=== PATIENT | female | born 2000 | race Caucasian/White ===

== ENCOUNTER 2025-02-08 13:51 | Outpatient (CLI) | payer BC, SELFPAY ==
--- NOTE | 2025-02-08 14:00 | CRLHL7_ITS ---
For Patients: As a result of the Cures Act, medical imaging exams and procedure reports are released immediately into your electronic medical record. You may view this report before your referring provider. If you have questions, please contact your health care provider. LMP: 12/02/2024. JIMI by LMP: 09/08/2025. GA: 9w, 5d. TECHNIQUE: Transvaginal obstetric imaging was performed. INDICATION: Dating and viability. BABY A (right): CRL: 0.33 cm 6w 0d. JIMI 10/04/2025. FHR: Cine clip. GESTATIONAL SAC: 1.2 cm, appears within normal limits. YOLK SAC: 2.8 mm, appears within normal limits. BABY B (left): CRL: 0.33 CM, 6w 0 d. JIMI 10/04/2025. FHR: Cine clip. GESTATIONAL SAC: 1.2 CM, appears within normal limits. YOLK SAC: 2.8 mm, appears within normal limits. RIGHT OVARY: 4.2 x 2.0 x 2.6 cm, CL. LEFT OVARY: 3.6 x 1.9 x 1.9 cm, CL. IMPRESSION: 1. Diamniotic/dichorionic twin gestation is present. 2. Twin A measures 6 weeks 0 days with a sonographic due date 10/04/2025. 3. Twin B measures 6 weeks 0 days with a sonographic due date 10/04/2025. 4. Right ovarian cysts are present which measure 1.5 x 1.5 x 1.6 cm and 1.8 x 1.5 x 1.7 cm. Left ovarian cyst measures 1.8 x 1.4 x 1.5 cm. 5. On the cine clips it does appear that heart tones are present, although because of the early gestation it is difficult to accurately document heart tones with B-mode imaging. Follow-up in 1-2 weeks recommended to document heart rate regarding both poles. Luther Forrester M.D. Diagnostic Radiologist [email or web address] bM/Dictated by: Luther Forrester MD @ 02/08/2025 4:14:00 PM (Electronically Signed)
== END 2025-02-08 13:52 | disposition home or self-care (01) ==
LOC: US 13:52
PROVIDERS: PCP Advanced Practice Midwife; Visit Provider Advanced Practice Midwife
DX: Z34.91 Encounter for supervision of normal pregnancy, unspecified, first trimester (principal); O30.001 Twin pregnancy, unspecified number of placenta and unspecified number of amniotic sacs, first trimester; O34.81 Maternal care for other abnormalities of pelvic organs, first trimester; N83.201 Unspecified ovarian cyst, right side; Z3A.09 9 weeks gestation of pregnancy
CPT/HCPCS: 76817

== ENCOUNTER 2025-02-19 12:00 | Outpatient (CLI) | payer BC, SELFPAY ==
--- NOTE | 2025-02-19 12:15 | CRLHL7_ITS ---
For Patients: As a result of the Cures Act, medical imaging exams and procedure reports are released immediately into your electronic medical record. You may view this report before your referring provider. If you have questions, please contact your health care provider. OB ULTRASOUND INDICATION: Follow-up viability. Di-Di twins. TECHNIQUE: Real time grayscale imaging of the fetus was performed. Transvaginal. JIMI by US: 10/04/2025. GA: 7 w, 4 d. Previous US: Yes 02/08/2025. JIMI by US: 10/04/2025. GA: 6 w, 0 d. BABY A: CRL: 1.3 cm. 7 w 3 d. JIMI: 10/05/2025. FHR: 150 BPM. Gestational sac: 2.3 cm. Appears within normal limits. Yolk sac: 3.0 mm. Appears within normal limits. BABY B: CRL: 1.2 cm. 7 w 3 d. JIMI: 10/05/2025. FHR: 149 BPM. Gestational sac: 2.2 cm. Appears within normal limits. Yolk sac: 2.8 mm. Appears within normal limits. Right ovary: 3.8 x 1.9 x 2.1 cm. CL. Left ovary: 2.8 x 1.9 x 2.0 cm. CL. IMPRESSION: 1. Living diamniotic-dichorionic twin gestation. 2. Twin A: Sonographic gestational age 7 weeks 3 days and sonographic due date 10/05/2025. 3. Twin B: Sonographic gestational age 7 weeks 3 days and sonographic due date 10/05/2025. Luther Forrester M.D. Diagnostic Radiologist [email or web address] JOSEPH/samson davies/Dictated by: Luther Forrester MD @ 02/19/2025 3:49:00 PM (Electronically Signed)
== END 2025-02-19 12:01 | disposition home or self-care (01) ==
LOC: US 12:01
PROVIDERS: PCP Advanced Practice Midwife; Visit Provider Advanced Practice Midwife
DX: O30.001 Twin pregnancy, unspecified number of placenta and unspecified number of amniotic sacs, first trimester (principal); Z3A.01 Less than 8 weeks gestation of pregnancy
CPT/HCPCS: 76817; 83021; 86592; 86703; 86704; 86706; 86762; 86787; 86803; 86850; 86900; 86901; 87086; 87340; 87491; 87591

== ENCOUNTER 2025-07-12 09:04 | Outpatient (CLI) | payer BC, SELFPAY ==
--- NOTE | 2025-07-12 09:15 | CRLHL7_ITS ---
For Patients: As a result of the Century Cures Act, medical imaging exams and procedure reports are released immediately into your electronic medical record. You may view this report before your referring provider. If you have questions, please contact your health care provider. OB ULTRASOUND FOLLOW-UP GROWTH, TWINS, TRANSABDOMINAL Clinical History: LMP: 12/02/2024. JIMI by US: 10/04/2025. GA: 28 w, 0 d. Twins. Comparison: At [facility]. INDICATION: Twin , dichorionic/diamniotic. TECHNIQUE: Real time vides scale imaging of the fetus was performed. Transabdominal imaging performed. TWIN A CERVIX: Not visualized. POSITIONING: Vertex. AMNIOTIC FLUID: 6.7 cm SDP (N: greater than 2 x 1 cm) PLACENTA POSITION: Anterior. DOPPLER: heart rate: 133 bpm. BIOMETRY: BPD: 7.7 cm. 31 w, 0 d, 97 percent. HC: 28.4 cm. 31 w, 1 d, 96 percent. AC: 23.0 cm. 27 w, 3 d, 24 percent. FL: 5.2 cm. 27 w, 6 d, 32 percent. FL/AC ratio: 22.8 percent. HC/AC ratio: 1.2. EFW: 1179 g. Weight: 2 lbs, 10 oz. age by this US: 29 w, 3 d. JIMI by this US: 09/24/2025. Percentile by JIMI: 41.9 percent. TWIN B: POSITIONING: Breech. AMNIOTIC FLUID: 6.4 cm SDP (N: greater than 2 x 1 cm) PLACENTA POSITION: Anterior. DOPPLER: heart rate: 144 bpm. BIOMETRY: BPD: 7.4 cm. 29 w, 4 d, 85.6 percent. HC: 28.0 cm. 30 w, 5 d, 92.3 percent. AC: 24.9 cm. 29 w, 1 d, 76.4 percent. FL: 5.2 cm. 27 w, 4 d, 24.1 percent. FL/AC ratio: 20.8 percent. HC/AC ratio: 1.1. EFW: 1288 g. Weight: 2 lbs, 13 oz. age by this US: 29 w, 2 d. JIMI by this US: 09/25/2025. Percentile by JIMI: 69.5 percent. IMPRESSION: 1. Twin A: Sonographic gestational age 29 weeks 3 days and sonographic due date 09/24/2025. Sonographic age is 10 days ahead of the clinical age. Estimated weight 42nd percentile. Abdominal circumference 24th percentile. BPD greater than 97th percentile. 2. Twin B: Sonographic gestational age 29 weeks 2 days and sonographic due date 09/25/2025. Sonographic age 9 days ahead of the clinical age. Estimated weight 70th percentile. Abdominal circumference 76th percentile. Luther Forrester M.D. Diagnostic Radiologist [email or web address] SP/Dictated by: Luther Forrester MD @ 07/15/2025 11:22:00 AM (Electronically Signed)
== END 2025-07-12 09:05 | disposition home or self-care (01) ==
LOC: US 09:05
PROVIDERS: PCP Advanced Practice Midwife; Visit Provider Obstetrics & Gynecology
DX: O30.043 Twin pregnancy, dichorionic/diamniotic, third trimester (principal); O36.63X0 Maternal care for excessive fetal growth, third trimester, not applicable or unspecified; Z3A.28 28 weeks gestation of pregnancy
CPT/HCPCS: 76816; 86592

== ENCOUNTER 2025-07-24 13:20 | Outpatient (CLI) | payer BC, SELFPAY ==
[2025-07-24] VITALS (26 sets, daily range): BP systolic 119–137; BP diastolic 68–87; PULSE 76–142; O2SAT 96–100
[2025-07-24 14:42] LABS: Amnisure Rom* Negative
[2025-07-24 14:43] LABS: Trichomonas No Trichomonas Seen (None Seen)
--- NOTE | 2025-07-24 15:16 | CRLHL7_ITS ---
For Patients: As a result of the Century Cures Act, medical imaging exams and procedure reports are released immediately into your electronic medical record. You may view this report before your referring provider. If you have questions, please contact your health care provider. INDICATION: Nonreactive NST twins. TECHNIQUE: Ultrasound OB pelvis transabdominal. Real-time vides-scale imaging of the fetus was performed without stress testing. COMPARISON: July 12, 2025. FINDINGS: Sonographic imaging demonstrates twin dichorionic/diamniotic living intrauterine gestations. Twin A: Fetus demonstrates a regular cardiac rate of 144 beats per minute. Fetus has a breech orientation. Amniotic fluid volume single deepest pocket 6.1 cm 2/2. motion 2/2. tone 2/2. breathing movements 2/2. Twin B: Fetus demonstrates a regular cardiac rate of 141 beats per minute. Fetus has a breech orientation. Amniotic fluid volume single deepest pocket 6.6 cm 2/2. motion 2/2. tone 2/2. breathing movements 2/2. IMPRESSION: Twin dichorionic/diamniotic viable intrauterine with a biophysical profile 05/03. Dictated by Victor Hugo Robertson MD @ 07/24/2025 4:26:19 PM (Electronically Signed)
[2025-07-24 15:22] LABS: Appearance Urine Clear (Clear)
--- NOTE | 2025-07-24 16:55 | PC.OBNST ---
NST Note NST Note Start: 07/24/25 13:44 Freq: ONCE Status: Active Protocol: Document 07/24/25 16:54 BAW (Rec: 07/24/25 16:55 BAW No Response) NST Note 1 Para (# of births) 0 EDC 10/05/25 Gestational Age In 29 Weeks & 4 Days Weeks & Days High Risk Factors Twins Patient Presented Decreased movement,Other with Complaint(s) of Other Complaints Vaginal Discharge. Twin B. Reactive Yes Appropriate for Yes Gestational Age JADE Tello RNC Date 07/24/25 Reactive Yes Appropriate for Yes Gestational Age JADE Pal RN Date 07/24/25 OB NST charge Yes Complete NST Note Yes via Write Note The provider's electronic signature indicates the NST is reactive/appropriate for gestational age. *Note to provider: If an addendum is required, open the patient's chart and click on the note under the Nurse/Allied Health tab.
== END 2025-07-24 16:15 | disposition home or self-care (01) ==
LOC: OB OUT 13:20 → OB 13:38
PROVIDERS: PCP Advanced Practice Midwife; Visit Provider Obstetrics & Gynecology
DX: O30.049 Twin pregnancy, dichorionic/diamniotic, unspecified trimester (principal)
CPT/HCPCS: 59025; 76819; 81001; 81003; 84112; 87086; 87210; G0463

== ENCOUNTER 2025-08-09 13:43 | Outpatient (CLI) | payer BC, SELFPAY ==
--- NOTE | 2025-08-09 14:00 | CRLHL7_ITS ---
For Patients: As a result of the Century Cures Act, medical imaging exams and procedure reports are released immediately into your electronic medical record. You may view this report before your referring provider. If you have questions, please contact your health care provider. OB ULTRASOUND FOLLOW-UP 08/09/2025 CLINICAL HISTORY: Di-di twins. Growth. TECHNIQUE: Real time vides scale imaging of the fetus was performed. Transabdominal imaging performed. COMPARISON: 07/24/2025, 07/12/2025. FINDINGS: JIMI by LMP/US: 10/05/2025. GA: 31 weeks 6 days. TWIN A: Cervix: Not visualized. Position: Breech. Amniotic Fluid: 4.1 cm SDP. Placenta: Anterior. Dopplers: Heart Rate: 147 bpm. BIOMETRY BPD: 8.4 cm, 34 weeks 0 days. 93% HC: 31.1 cm, 34 weeks 6 days. 88% AC: 28.5 cm, 32 weeks 4 days. 69% FL: 6.0 cm, 31 weeks 1 day. 18% FL/AC Ratio: 20.93% HC/AC Ratio: 1.09. EFW: 1981 grams, 4 lb 6 oz. Age by this US: 33 weeks 1 day. JIMI by this US: 09/26/2025. Percentile by JIMI: 59% TWIN B: Positioning: Breech. Amniotic Fluid: 4.4 cm SDP. Placenta: Anterior. Dopplers: Heart Rate: 165 bpm. BIOMETRY BPD: 8.3 cm, 33 weeks 2 days. 80% HC: 31.6 cm, 35 weeks 4 days. 95% AC: 27.1 cm, 31 weeks 1 day. 29% FL: 6.0 cm, 31 weeks 0 days. 17% FL/AC Ratio: 21.98% HC/AC Ratio: 1.17. EFW: 1826 grams, 4 lb 0 oz. Age by tis US: 32 weeks 5 days. JIMI by this US: 09/29/2025. Percentile by JIMI: 35% IMPRESSION: 1. Twin A: Sonographic gestational age 33 weeks 1 day and sonographic due date 09/26/2025. Sonographic age is 9 days ahead of the clinical age. Estimated weight 59th percentile. Abdominal circumference 69th percentile. 2. Twin B: Sonographic gestational age 32 weeks 5 days and sonographic due date 09/29/2025. Sonographic age is 6 days ahead of the clinical age. Estimated weight 35th percentile. Abdominal circumference 29th percentile. Luther Forrester M.D. Diagnostic Radiologist [email or web address] Transcribed: 3:49 pm DW/Dictated by: Luther Forrester MD @ 08/09/2025 3:27:00 PM (Electronically Signed)
== END 2025-08-09 13:44 | disposition home or self-care (01) ==
LOC: US 13:43
PROVIDERS: PCP Advanced Practice Midwife; Visit Provider Obstetrics & Gynecology
DX: O30.043 Twin pregnancy, dichorionic/diamniotic, third trimester (principal); Z3A.32 32 weeks gestation of pregnancy
CPT/HCPCS: 76816

== ENCOUNTER 2025-08-23 11:39 | Outpatient (CLI) | payer BC, SELFPAY | END 2025-08-23 11:40 | disposition home or self-care (01) | LOC: NFLDREF 08-29 01:34 | PROVIDERS: PCP Advanced Practice Midwife; Referring Provider Advanced Practice Midwife; Visit Provider Obstetrics & Gynecology | DX: O30.043 Twin pregnancy, dichorionic/diamniotic, third trimester (principal); O26.893 Other specified pregnancy related conditions, third trimester; N89.8 Other specified noninflammatory disorders of vagina; Z3A.33 33 weeks gestation of pregnancy | CPT/HCPCS: 87081; 87086; 87653 ==

== ENCOUNTER 2025-08-23 12:27 | Outpatient (CLI) | payer BC, SELFPAY ==
--- NOTE | 2025-08-23 13:00 | CRLHL7_ITS ---
For Patients: As a result of the Cures Act, medical imaging exams and procedure reports are released immediately into your electronic medical record. You may view this report before your referring provider. If you have questions, please contact your health care provider. OB ULTRASOUND BIOPHYSICAL PROFILE JIMI by US: 10/05/2024. GA: 33 w, 6 d. Twin. Comparison: US 08/09/2025, 07/24/2025, 07/12/2025, 06/04/2025. INDICATION: Nonreactive NST. Twins di/di. TECHNIQUE: Real time vides scale imaging of the fetuses was performed. Transabdominal. CERVIX: Not visualized. TWIN A: POSITIONING: Vertex. AMNIOTIC FLUID: 4.6 cm. SDP (N: greater than 2 x 1 cm) BIOPHYSICAL PROFILE: Total score: 6. Gross body movements: 2. tone: 2. Respiratory activity: 0. Amniotic fluid: 2. (SDP N: greater than 2 x 1 cm) PLACENTA: Technique: Transabdominal. PLACENTA POSITION: Anterior. DOPPLER: heart rate: 144 bpm. TWIN B: POSITIONING: Breech. AMNIOTIC FLUID: 3.8 cm. SDP (N: greater than 2 x 1 cm) BIOPHYSICAL PROFILE: Total score: 8. Gross body movements: 2. tone: 2. Respiratory activity: 2. Amniotic fluid: 3.8. (SDP N: greater than 2 x 1 cm) PLACENTA: Technique: Transabdominal. PLACENTA POSITION: Anterior. DOPPLER: heart rate: 159 bpm. 1. IMPRESSION: Twin A: Biophysical profile /8 with absent respiratory activity. 2. Twin B: Normal biophysical profile 05/03. Luther Forrester M.D. Diagnostic Radiologist [email or web address] JOSEPH/tomas JR/Dictated by: Luther Forrester MD @ 08/26/2025 5:54:00 AM (Electronically Signed)
== END 2025-08-23 12:28 | disposition home or self-care (01) ==
LOC: US 12:28
PROVIDERS: PCP Advanced Practice Midwife; Visit Provider Obstetrics & Gynecology
DX: O30.043 Twin pregnancy, dichorionic/diamniotic, third trimester (principal); O35.BXX0 Maternal care for other (suspected) fetal abnormality and damage, fetal cardiac anomalies, not applicable or unspecified; Z3A.33 33 weeks gestation of pregnancy
CPT/HCPCS: 76819

== ENCOUNTER 2025-08-23 13:17 | Outpatient (CLI) | payer BC, SELFPAY ==
--- NOTE | 2025-08-23 14:40 | PC.OBNST ---
NST Note NST Note Start: 08/23/25 13:30 Freq: ONCE Status: Active Protocol: Document 08/23/25 14:39 [facility] (Rec: 08/23/25 14:40 [facility] [id number]) NST Note 1 Para (# of births) 0 EDC 10/05/25 Gestational Age In 33 Weeks & 6 Days Weeks & Days Other Complaints Baby B, BPP 05/03 came over for extended monitoring due to Baby A. Reactive Yes Appropriate for Yes Gestational Age JADE Pal RN Date 08/23/25 Reactive Yes Appropriate for Yes Gestational Age JADE Tello RNC Date 08/23/25 OB NST charge Yes Complete NST Note Yes via Write Note The provider's electronic signature indicates the NST is reactive/appropriate for gestational age. *Note to provider: If an addendum is required, open the patient's chart and click on the note under the Nurse/Allied Health tab.
== END 2025-08-23 14:41 | disposition home or self-care (01) ==
LOC: OB OUT 13:17 → OB 13:18
PROVIDERS: PCP Advanced Practice Midwife; Visit Provider Obstetrics & Gynecology
DX: O35.BXX0 Maternal care for other (suspected) fetal abnormality and damage, fetal cardiac anomalies, not applicable or unspecified (principal); O30.003 Twin pregnancy, unspecified number of placenta and unspecified number of amniotic sacs, third trimester; Z3A.33 33 weeks gestation of pregnancy; O30.043 Twin pregnancy, dichorionic/diamniotic, third trimester; O26.893 Other specified pregnancy related conditions, third trimester; N89.8 Other specified noninflammatory disorders of vagina
CPT/HCPCS: 59025; G0463

== ENCOUNTER 2025-09-01 12:24 | Outpatient (CLI) | payer BC, SELFPAY ==
[2025-09-01 12:38] VITALS: BP 129/84; PULSE 112; RESP 16; TEMP 36.9
[2025-09-01 13:15] VITALS: PULSE 88; O2SAT 98
--- NOTE | 2025-09-01 13:15 | CRLHL7_ITS ---
For Patients: As a result of the Century Cures Act, medical imaging exams and procedure reports are released immediately into your electronic medical record. You may view this report before your referring provider. If you have questions, please contact your health care provider. LIMITED OBSTETRICAL ULTRASOUND, 09/01/2025 INDICATION: Assess fluid, position and cervical length. JIMI by US: 10/05/2025 GESTATIONAL AGE: 35 weeks 1 day COMPARISON: 08/23/2025, 08/09/2025 and 07/24/2025 TECHNIQUE: Real-time vides-scale imaging of the fetus was performed transabdominal. FINDINGS TWIN A INDICATION: Position/Fluid/Cervix. Cervix: Visualized Technique: Transvaginal. Length of closed cervix: 3.8 cm Positioning: Vertex. Amniotic Fluid: 4.3 cm SDP. Placenta Location: Anterior. Heart Rate: 137 bpm. IMPRESSION: 1) Transvaginal assessment of the cervix performed. Cervix is closed, measures 3.8 cm. 2) Single deepest pocket amniotic fluid measures 4.3 cm. 3) Twin B single deepest pocket amniotic fluid measures 4.3 cm. 4) Twin A is vertex position, maternal right. Twin B is breech position, maternal left. LUTHER LEBRON M.D. Diagnostic Radiologist [email or web address] DW/Dictated by: Luther Lebron MD @ 09/01/2025 2:56:00 PM (Electronically Signed)
[2025-09-01 13:46] VITALS: BP 120/75; PULSE 86
[2025-09-01] MEDS: ACETAMINOPHEN 500 MG TABLET 1000 MG PO (14:01)
[2025-09-01 14:02] VITALS: BP 123/77; PULSE 93
[2025-09-01 14:03] LABS: Hematocrit* 32.4 % (33.0-51.0); Hemoglobin* 10.6 gm/dL (12.0-16.0); Mean Corpuscular HGB Conc 33 gm/dL (32-36); Mean Corpuscular Hemoglobin 27 pg (26-34); Mean Corpuscular Volume 82 fL (80-100); Red Blood Count* 3.94 m/uL (4.00-5.20); White Blood Count* 10.03 K/uL (4.50-11.00)
[2025-09-01 14:04] LABS: Slide Review Reflex No
[2025-09-01 14:06] LABS: Appearance Urine Slightly Cloudy (Clear)
[2025-09-01 14:08] LABS: Amnisure Rom* Negative
[2025-09-01 14:17] LABS: Alanine Aminotransferase* 15 U/L (4-35); Aspartate Amino Transferase* 26 U/L (12-35); Blood Urea Nitrogen* 9 mg/dL (5-24); Creatinine* 0.6 mg/dL (0.5-1.5); Estimated Glomerular Filt Rate 128 ml/min
[2025-09-01 14:30] LABS: Protein Creatinine Ratio Urine 0.21 (0-0.19)
[2025-09-01 14:39] VITALS: BP 122/69; PULSE 88
[2025-09-01 14:53] LABS: Bacterial Vaginosis* Negative (Negative); Candida glab/krus NOT DETECTED (No Detected)
--- NOTE | 2025-09-01 21:09 | PC.OBNST ---
NST Note NST Note Start: 09/01/25 12:32 Freq: ONCE Status: Discharge Protocol: Document 09/01/25 15:22 WMK (Rec: 09/01/25 19:53 WMK No Response) NST Note 1 Para (# of births) 0 EDC 10/05/25 Gestational Age In 35 Weeks & 1 Days Weeks & Days High Risk Factors Twins Patient Presented Vaginal bleeding with Complaint(s) of Reactive Yes JADE Sahni RNC Date 09/01/25 Reactive Yes RN Date 09/01/25 OB NST charge Yes Complete NST Note Yes via Write Note The provider's electronic signature indicates the NST is reactive/appropriate for gestational age. *Note to provider: If an addendum is required, open the patient's chart and click on the note under the Nurse/Allied Health tab.
== END 2025-09-01 15:50 | disposition home or self-care (01) ==
LOC: OB OUT 12:24 → OB 12:42
PROVIDERS: PCP Advanced Practice Midwife; Visit Provider Obstetrics & Gynecology
DX: O30.003 Twin pregnancy, unspecified number of placenta and unspecified number of amniotic sacs, third trimester (principal); O46.93 Antepartum hemorrhage, unspecified, third trimester; Z3A.35 35 weeks gestation of pregnancy
CPT/HCPCS: 36415; 59025; 76815; 76817; 81001; 81003; 81513; 82565; 82570; 84112; 84156; 84450; 84460; 84520; 85027; 87086; 87481; 87661; G0463; A9270

== ENCOUNTER 2025-09-06 13:46 | Outpatient (CLI) | payer BC, SELFPAY ==
--- NOTE | 2025-09-06 14:00 | CRLHL7_ITS ---
For Patients: As a result of the 21st Century Cures Act, medical imaging exams and procedure reports are released immediately into your electronic medical record. You may view this report before your referring provider. If you have questions, please contact your health care provider. OB BPP FOLLOW-UP LIMITED CLINICAL HISTORY: JIMI by US: 10/05/2025. GA: 35w, 6d. COMPARISON: 09/01/2025, 08/23/2025, 08/09/2025. INDICATION: Di/Di twins. TWIN A: CERVIX: Not visualized. POSITIONING: Vertex, maternal right AMNIOTIC FLUID: 4,8 cm SDP. BIOPHYSICAL PROFILE: Total score: 8. Gross body movements: 2. tone: 2. Respiratory activity: 2. Amniotic fluid: 2. (SDP N: Increase 2 x 1 cm) PLACENTA: Technique: Transabdominal. PLACENTA POSITION: Anterior. DOPPLER: heart rate: 147 bpm. BIOMETRY: BPD: 9.0 cm. 36w, 3d, 73.8 percent. HC: 33.2 cm. 37w, 6d, 69.9 percent. AC: 30.5 cm. 34w, 3d, 21.3 percent. FL: 6.7 cm. 34w, 2d, 10.9 percent. FL/AC ratio: 21.8 percent. HC/AC ratio: 1.1. EFW: 2561 g. Weight: 5 lbs, 10 oz. age by this US: 35w, 5d. JIMI by this US: 10/06/2025. Percentile by JIMI: 26.5 percent. TWIN B: FINDINGS: position: Breech. Maternal left. Placenta/cord: Anterior. Technique: Transabdominal. heart rate: 157 bpm. BPD: 8.9 cm. 35w 5d, 55.4 percent. HC: 33.5 cm. 38w 3d, 79.4 percent. AC: 31.8 cm. 35w 5d, 55.4 percent. FL: 6.9 cm. 35w 2d, 30.9 percent. FL/AC: 21.7 percent. HC/AC Ratio: 1.1. age by this US: 36w 2d. JIMI by this US: 10/02/2025. EFW: 2795 g. Weight: 6 lbs, 3 oz. Percentile by JIMI: 51.4 percent. IMPRESSION: 1. Twin A: Sonographic gestational age 35 weeks 5 days and sonographic due date 10/06/2025. Good correlation with dates. Normal interval growth. Estimated weight 27th percentile. Abdominal circumference 21st percentile. Normal biophysical profile 05/03. Maternal right, vertex position. 2. Twin B: Sonographic gestational age 36 weeks 2 days and sonographic due date 10/02/2025. Good correlation with dates. Normal interval growth. Estimated weight 51st percentile. Abdominal circumference 55th percentile. Normal biophysical profile 05/03. Breech position, maternal left. Luther Forrester M.D. Diagnostic Radiologist [email or web address] bM/Dictated by: Luther Forrester MD @ 09/06/2025 3:41:00 PM (Electronically Signed)
== END 2025-09-06 13:47 | disposition home or self-care (01) ==
LOC: US 13:47
PROVIDERS: PCP Advanced Practice Midwife; Visit Provider Obstetrics & Gynecology
DX: O30.043 Twin pregnancy, dichorionic/diamniotic, third trimester (principal); Z3A.35 35 weeks gestation of pregnancy; O47.03 False labor before 37 completed weeks of gestation, third trimester
CPT/HCPCS: 76816; 76819; 82565; 82570; 84156; 84450; 84460

== ENCOUNTER 2025-09-06 16:16 | Outpatient (CLI) | payer BC, SELFPAY ==
[2025-09-06] VITALS (9 sets, daily range): BP systolic 121–141; BP diastolic 75–92; PULSE 88–104; RESP 18; TEMP 37.1; O2SAT 98
[2025-09-06 18:43] LABS: Amnisure Rom* Negative
--- NOTE | 2025-09-06 19:08 | PC.OBNST ---
NST Note NST Note Start: 09/06/25 16:27 Freq: ONCE Status: Active Protocol: Document 09/06/25 16:27 ABH (Rec: 09/06/25 19:08 AB No Response) NST Note 1 Para (# of births) 0 EDC 10/05/25 Gestational Age In 35 Weeks & 6 Days Weeks & Days High Risk Factors Twins Patient Presented Contractions/cramping with Complaint(s) of Reactive Yes Appropriate for Yes Gestational Age JADE Baumann RN Date 09/06/25 Reactive Yes Appropriate for Yes Gestational Age JADE Santos RN Date 09/06/25 OB NST charge Yes Complete NST Note Yes via Write Note The provider's electronic signature indicates the NST is reactive/appropriate for gestational age. *Note to provider: If an addendum is required, open the patient's chart and click on the note under the Nurse/Allied Health tab.
== END 2025-09-06 19:05 | disposition home or self-care (01) ==
LOC: OB OUT 16:17 → OB 16:18
PROVIDERS: PCP Advanced Practice Midwife; Visit Provider Obstetrics & Gynecology
DX: O30.003 Twin pregnancy, unspecified number of placenta and unspecified number of amniotic sacs, third trimester (principal); O47.03 False labor before 37 completed weeks of gestation, third trimester; Z3A.35 35 weeks gestation of pregnancy
CPT/HCPCS: 59025; 84112; G0463

== ENCOUNTER 2025-09-08 14:02 | Outpatient (CLI) | payer BC, SELFPAY ==
[2025-09-08 14:05] VITALS: PULSE 115; O2SAT 100
[2025-09-08 14:36] VITALS: BP 129/73; PULSE 88
[2025-09-08 14:42] LABS: Amnisure Rom* Negative
[2025-09-08 16:56] LABS: Appearance Urine Clear (Clear)
[2025-09-08 17:43] LABS: Trichomonas No Trichomonas Seen (None Seen)
[2025-09-08 17:53] VITALS: BP 133/81; PULSE 82
--- NOTE | 2025-09-08 19:13 | PC.OBNST ---
NST Note NST Note Start: 09/08/25 14:11 Freq: ONCE Status: Active Protocol: Document 09/08/25 19:10 LMR (Rec: 09/08/25 19:12 LMR No Response) NST Note 1 Para (# of births) 0 EDC 10/05/25 Gestational Age In 36 Weeks & 1 Days Weeks & Days High Risk Factors Twins Patient Presented Leaking fluid with Complaint(s) of Reactive Yes Appropriate for Yes Gestational Age RN Sb RN Date 09/08/25 Reactive Yes Appropriate for Yes Gestational Age JADE Davidson RN Date 09/08/25 OB NST charge Yes Complete NST Note Yes via Write Note The provider's electronic signature indicates the NST is reactive/appropriate for gestational age. *Note to provider: If an addendum is required, open the patient's chart and click on the note under the Nurse/Allied Health tab.
== END 2025-09-08 18:25 | disposition home or self-care (01) ==
LOC: OB OUT 14:02 → OB 14:02
PROVIDERS: PCP Advanced Practice Midwife; Visit Provider Obstetrics & Gynecology
DX: O30.003 Twin pregnancy, unspecified number of placenta and unspecified number of amniotic sacs, third trimester (principal); O47.03 False labor before 37 completed weeks of gestation, third trimester; Z3A.36 36 weeks gestation of pregnancy
CPT/HCPCS: 59025; 81001; 81003; 84112; 87086; 87210; G0463

== ENCOUNTER 2025-09-13 13:43 | Outpatient (CLI) | payer BC, SELFPAY ==
--- NOTE | 2025-09-13 14:00 | CRLHL7_ITS ---
For Patients: As a result of the Cures Act, medical imaging exams and procedure reports are released immediately into your electronic medical record. You may view this report before your referring provider. If you have questions, please contact your health care provider. OB ULTRASOUND TWINS INDICATION: Di/Di twins. JIMI by US: 10/05/2025. GA: 36 w, 6 d. COMPARISON: 09/06/2025, 09/01/2025, 08/23/2025. TECHNIQUE: Real time vides scale imaging of the fetus was performed. Transabdominal imaging performed. TWIN A: CERVIX: Not visualized. POSITIONING: Vertex. AMNIOTIC FLUID: 7.4 cm SDP (N: greater than 2 x 1 cm). BIOPHYSICAL PROFILE: Gross body movements: 2. tone: 2. Respiratory activity: 2. Amniotic fluid: 2. SDP (N: greater than 2 x 1 cm) Total score: 8. PLACENTA POSITION: Anterior. DOPPLER: heart rate: 144 bpm. TWIN B: POSITIONING: Transverse, right. AMNIOTIC FLUID: 6.1 cm SDP (N: greater than 2 x 1 cm). BIOPHYSICAL PROFILE: Gross body movements: 2. tone: 2. Respiratory activity: 2. Amniotic fluid: 2. SDP (N: greater than 2 x 1 cm) Total score: 8. PLACENTA POSITION: Anterior. DOPPLER: heart rate: 139-165 bpm. IMPRESSION: 1. Twin A: Normal biophysical profile 8. 2. Twin B: Normal biophysical profile 8. Luther Forrester M.D. Diagnostic Radiologist [email or web address] DARIAN/Dictated by: Luther Forrester MD @ 09/13/2025 3:24:00 PM (Electronically Signed)
== END 2025-09-13 13:44 | disposition home or self-care (01) ==
LOC: US 13:43
PROVIDERS: PCP Advanced Practice Midwife; Visit Provider Obstetrics & Gynecology
DX: O30.043 Twin pregnancy, dichorionic/diamniotic, third trimester (principal); Z3A.36 36 weeks gestation of pregnancy
CPT/HCPCS: 76819

== ENCOUNTER 2025-09-13 15:24 | Inpatient (IN) | payer BC, SELFPAY ==
[2025-09-13] VITALS (21 sets, daily range): BP systolic 120–160; BP diastolic 75–94; PULSE 72–108; RESP 16–20; TEMP 36.6–37.7; O2SAT 97–100; BMI 36.1
--- NOTE | 2025-09-13 15:52 | PM.OBHPLI ---
OB - H&P: HPI Labor/Induction History of Present Illness Date Seen: 09/13/25 Chief complaint: maternity Narrative: Ewa is a 25 year old 1 para 0 at 36w6d GA by US, who presents for induction of labor for newly diagnosed gestational hypertension. is complicated by dichorionic diamniotic twin gestation. Her complete history and physical was dictated by myself today, see that note for complete details. Briefly, Ewa had a mild range BP in clinic today where she was also monitored last week with a handful of mild range BPs (but did not meet criteria at that time). This represents multiple mild range blood pressures by more than 4 hours, diagnostic of hypertensive disorder of . She denies unrelenting headache, vision changes right upper quadrant pain at this time. Preeclampsia labs were drawn - platelets 282, Cr 0.6, AST 26, ALT 16, UPCR 0.26. Hemoglobin was 10.7. Patient has had regular and somewhat painful contractions over the last few days. She can feel her current contractions (q2-5m) but notes they are not painful. No vaginal bleeding or leaking of fluid. Endorses active movement of both twins. Specific Issues/Plans Partner: [place] Twins: [considering Siri and Rob] H&P: Nessa on 09/13 # Di/Di twin gestation ASA 81mg Genetic counseling: MFM consult with level 2 ultrasound: 05/06/25. Overall normal x 2 but subopt view. Repeat schedule with MFM in 4 weeks Growth ultrasound every 4 weeks starting the 24 weeks Weekly testing starting at 36 weeks if uncomplicated ( surveillance form filled out on June 05) Delivery at 38 weeks #Elevated BP without Dx of HTN in triage on 09/06 - normal preE labs - HTN disorder if any more, likely IOL # HepB non immune - low risk, plans to defer vaccine at this time # varicella nonimmune- notified on 03/18. 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 Vaccination # [] Imagin02/08/2025: Twin A 6 0/7 weeks, Twin B 6 0/7 weeks 02/19/2025: Di/Di twin gestation. Twin A 7 3/7 weeks, FHR 150 bpm, Twin B 7 3/7 weeks, FHR 149 bpm 05/06/25 MFM Scan: Twin A: Maternal right. EFW 33%, AC 41%. Anterior placenta, no previa. MVP 4.7 cm. Normal but subop views Twin B: Maternal left. EFW 28%, AC 47%. Anterior placenta, no previa. MVP 5.5 cm. Normal but subop views growth discordance 2%. F/u with MFM in 4 weeks to evaluate anatomy and growth. 06/04/25: MFM scan Twin A: EFW 73%, AC 57%. MVP 6.7 cm. The remaining anatomic survey was completed, no anomalies detected Twin B: EFW at the 66 percentile, AC 58th percentile MVP 5.3 cm. The inter twin discordance was 2.6%. 07/12/2025 growth scan: Twin A: Vertex, EFW 42%, AC 24%, MVP 6.7 cm Twin B: Breech, EFW 70%, AC 96%, MVP 6.4 cm. Inter twin discordance = 8.5%. 07/24 in triage for DFM - 05/03 BPP for both twins, breech/breech presentation 08/09/2025 growth scan: Twin A: Breech, EFW 59%, AC 69%, MVP 4.1 cm Twin B: Breech, EFW 35%, AC 29%, MVP 4.4 cm. Inter twin discordance 7.8% 09/06/2025 growth scan: Twin A: Vertex, EFW 2561 g (26.5%), BPD 74%, HC 70%, AC 21%, FL 11%, SDP 4.8 cm Twin B: Breech, EFW 2795 g (51.4%), BPD 55%, HC 79%, AC 55%, FL 31%, SDP 5.6 cm. Inter twin discordance a 8.4%. Vaccinations: COVID: declined Flu: declined Tdap: 07/29/2025 RSV: [] 32 week mental health: [] Last pap: 02/07/24 Meds Home Medications and Allergies Home Medications ?Medication ?Instructions ?Recorded ?Confirmed ?Type aspirin 81 mg tablet,delayed 81 mg PO QDAY 05/15/25 09/13/25 History release (Adult Low Dose Aspirin) folic acid 400 mcg tablet 0.4 mg PO QDAY 05/15/25 09/13/25 History omega 7-uei-inx-fish oil 60 mg-90 2 cap PO QDAY 05/15/25 09/13/25 History mg-500 mg capsule (Fish Oil) Allergies Allergy/AdvReac Type Severity Reaction Status Date / Time No Known Drug Allergies Allergy Verified 09/13/25 16:22 OB - H&P: Exam Physical Exam: Vital signs: Temp Pulse Resp BP Pulse Ox 97.9 F 96 16 148/86 H 100 09/13/25 15:46 09/13/25 15:51 09/13/25 15:46 09/13/25 15:51 09/13/25 15:47 Narrative: Vital signs as noted above. Patient has had persistent mild range blood pressures, had 1 nonsustained severe range pressure that was felt to be erroneous. General: Alert and oriented, no acute distress Psych: Appropriate mood and affect Abdomen: Gravid. Twin a vertex, twin B transverse with head to maternal right on formal ultrasound today. Most recent growth US on 09/06: Twin A: EFW 2561 g (26.5%), BPD 74%, HC 70%, AC 21%, FL 11%, SDP 4.8 cm Twin B: EFW 2795 g (51.4%), BPD 55%, HC 79%, AC 55%, FL 31%, SDP 5.6 cm. Intertwin discordance of 8.4%. NST: Reactive for both twins. Twin a has a baseline of 130 beats per minute, moderate variability, 15 x 15 accelerations seen, no decelerations. Twin B has a baseline of 140 beats per minute, moderate variability, 15 x 15 accelerations seen, no decelerations. [place]: Barbara every 2-5 minutes. Cervix: 1/50/-3. After discussion of risks/benefits and alternatives consent for Cook catheter was obtained. Placed without difficulty, 60/60cc instilled. OB - Problem Based A/P Additional Plan (1) Gestational hypertension: Status: Acute Plan Ewa is a 25 year old 1 para 0 at 36w6d GA by US, who presents for induction of labor for newly diagnosed gestational hypertension. is complicated by dichorionic diamniotic twin gestation. Her complete history and physical was dictated by myself today, see that note for complete details. Blood pressures are in the normal to mild range on admission. Her single severe range blood pressure was felt to be erroneous (patient talking/moving), on a recheck 2 minutes later was in the mild range. Patient has no unrelenting headaches, vision changes or right upper quadrant pain. Admission preeclampsia labs normal, UPCR 0.26. Patient is admitted to [facility] for IOL. Patient was thoroughly counseled about potential outcomes, risks and benefits with twin vaginal deliveries - including x2, pC/S x2, of twin A with breech extraction of twin B or of twin A with pC/S of twin B. Explained the clinical context in which how/why each of these outcomes could occur. Explained risks of second coming twin breech extraction including head entrapment (requiring cervical incisions or piper forceps), brachial plexus injury and cord compression/accident. Explained risks of including bleeding, infection, damage to surrounding structures (uterus, tubes, ovaries, bowel, bladder, blood vessels, babies). All questions answered. After comprehensive discussion, she affirms her desire for a twin vaginal delivery. - Cervix was 1/50/-3 on admission, contractions occurring q2-5 minutes but nonpainful. IOL started with cook catheter. Plan augmentation with low dose pitocin overnight. - Plan diligent blood pressure monitoring overnight. Will treat sustained SRBP if present, no long acting antihypertensive medications at this time. - Admission preE labs normal, repeat as clinically indicated. - Pain control per patient request - she is a candidate for morphine/Vistaril if desired. Plans epidural eventually. - Blood type O positive, active type and screen drawn. Plan to cross for 2 u pRBC given risk PPH with twin delivery. - GBS negative - Plan to have OR crew present when patient is in active labor for twin vaginal delivery in OR. - Dr. Knox to assume care at 0700 on 09/14/25
[2025-09-13 16:26] LABS: Hematocrit* 34.0 % (33.0-51.0); Hemoglobin* 10.7 gm/dL (12.0-16.0); Mean Corpuscular HGB Conc 32 gm/dL (32-36); Mean Corpuscular Hemoglobin 26 pg (26-34); Mean Corpuscular Volume 83 fL (80-100); Red Blood Count* 4.11 m/uL (4.00-5.20); White Blood Count* 9.61 K/uL (4.50-11.00)
[2025-09-13 16:36] LABS: Slide Review Reflex No
[2025-09-13 16:50] LABS: Alanine Aminotransferase* 16 U/L (4-35); Aspartate Amino Transferase* 26 U/L (12-35); Creatinine* 0.6 mg/dL (0.5-1.5); Estimated Glomerular Filt Rate 128 ml/min
[2025-09-13 17:35] LABS: Protein Creatinine Ratio Urine 0.26 (0-0.19)
[2025-09-13] MEDS: OXYTOCIN 30 unit/500 ML in NS 30 UNIT/500 ML BAG IVPB (23:59)
[2025-09-13] MEDS: LACTATED RINGERS 1000 ML 1,000 ML 125 ML IV (23:59)
[2025-09-14] VITALS (107 sets, daily range): BP systolic 98–190; BP diastolic 57–101; PULSE 72–147; RESP 12–18; TEMP 36.6–37.6; O2SAT 92–100
[2025-09-14] MEDS: LACTATED RINGERS 1000 ML 1,000 ML 125 ML IV ×2 (07:57→14:55)
--- NOTE | 2025-09-14 08:27 | P.OBPN_ITS ---
Subjective Time Seen by Provider: 08:00 Date Seen: 09/14/25 Objective Vital Signs: Last Vital Signs Temp 98.1 F 09/14/25 08:01 Pulse 76 09/14/25 07:15 Resp 16 09/14/25 08:01 BP 120/77 09/14/25 07:15 Pulse Ox 97 09/13/25 23:17 Pelvic Exam Dilation (cm): 4 Effacement (%): 50 Station: -3 Comments: Cervix towards patient's left and stretchy, can stretch to 5 cm. head well applied. Patient verbally consented to AROM. AROM@0751. Copious amount of clear fluid. Patient tolerated the procedure well. Contractions Contraction Frequency: Q2-3 minutes Contraction pattern: Regular Contraction intensity: Mild Pitocin Rate (mU/min): 8 Assessment Assessment: induction ongoing Station: -3 Amniotic Membrane Status: AROM (0751) Status: Category l Heart Rate Baseline: 140 Custodial Variability: Moderate (6-25) Monitor Accelerations: Present Monitor Decelerations: None Additional Fetuses Fetus B: status: Category l Comments: Baseline 150bpm, moderate variability, + accelerations, - deceleration Plan Plan: - Patient feeling contractions but still comfortable. - Will continue to titrate pitocin per protocol
[2025-09-14] MEDS: LACTATED RINGERS 1000 ML 1,000 ML 1200 ML IV ×2 (11:21→12:22)
[2025-09-14] MEDS: LIDOCAINE 2% (PF) 5 ML VIAL EPIDURAL (11:30)
[2025-09-14] MEDS: ROPIVACAINE 0.2% 100 ml 100 ML 12 MG EPIDURAL (11:32)
[2025-09-14] MEDS: PHENYLEPHRINE 100 MCG/ML SYRINGE IVP ×2 (11:47→12:00)
--- NOTE | 2025-09-14 11:58 | P.ANBPRC_ITS ---
[facility] Medical History (Updated 09/13/25 @ 18:05 by Stacia Szymanski MD) High blood pressure affecting in third trimester, antepartum ?O16.3 - Unspecified maternal hypertension, third trimester (ICD-10) Social History Narrative: SOCIAL HISTORY: Occupation: Teacher. Marital status: . Nondenominational/cultural needs: no. Chemical or radiation exposure: no. Pre- tobacco use: no. Pre- alcohol use: Occasional. Current tobacco use: no. Current alcohol use: no. Recreational drug use: no. Dietary restrictions: no. Blood transfusion acceptable in an emergency: Yes. PSYCHOSOCIAL HISTORY: History of depression or currently depressed: Denies. Current or past physical, emotional, or sexual mistreatment: Denies. Problems that will make it hard to make it to appointments: Denies. What is your current living situation?: I presently have a place to live Problems where you live: no known problems In the past 12 months, utilities in danger of being shut off: no In past 12 months, lack of transportation kept you from medical appts, meetings, work, or getting things needed for daily living: no In the past 12 mos, have been you worried that your food would run out before you had money to buy more?: never true In the past 12 mos, the food you bought just didn't last and you didn't have money to buy more?: never true Smoking Status: Never smoker How often does anyone, including family, friends and others, physically hurt you : never How often does anyone, including family, friends and others, insult or talk down to you: never How often does anyone, including family, friends and others, threaten you with harm: never How often does anyone, including family, friends and others, scream or curse at you: never Meds Home Medications and Allergies Home Medications ?Medication ?Instructions ?Recorded ?Confirmed ?Type aspirin 81 mg tablet,delayed 81 mg PO QDAY 05/15/25 History release (Adult Low Dose Aspirin) folic acid 400 mcg tablet 0.4 mg PO QDAY 05/15/2508/26 History omega 5-azx-igj-fish oil 60 mg-90 2 cap PO QDAY 09/13/25 History mg-500 mg capsule (Fish Oil) Allergies Allergy/AdvReac Type Severity Reaction Status Date / Time No Known Drug Allergies Allergy Verified 09/13/25 16:22 Results Labs Labs: Laboratory Results - last 24 hr 09/13/25 09/13/25 16:12 16:18 WBC 9.61 RBC 4.11 Hgb 10.7 L Hct 34.0 MCV 83 MCH 26 MCHC 32 Plt Count 282 Creatinine 0.6 Estimated GFR 128 AST 26 ALT 16 Urine Creatinine 35.1 Protein/Creatinin Ratio 0.26 H Urine Total Protein 9 Syphilis IgG Antibody Non-Reactive Blood Type O Positive Antibody Screen NEGATIVE Crossmatch (AHG) See Detail Vital Signs Vital Signs: Last Vital Signs Temp 98.5 F 09/14/25 11:57 Pulse 95 09/14/25 11:55 Resp 16 09/14/25 11:57 BP 126/69 09/14/25 11:55 Pulse Ox 92 09/14/25 11:47 Weight: 107.864 kg Height: 172.72 cm Anesthesia Procedures Epidural Insertion Patient Location: OB Start Time: 11:00 Stop Time: 11:45 Start Date: 09/14/25 Stop Date: 09/14/25 Reason for Block: procedure for pain Patient Position: sitting Performed By: Gayle Bianchi Preanesthetic Checklist: IV checked, site marked, risks and benefits discussed, monitors and equipment checked, pre-op evaluation, timeout performed and anesthesia consent Prep: chlorhexidine gluconate Monitoring: blood pressure monitoring, continuous pulse oximetry and heart rate Approach: midline Vertebral Space: lumbar (1-5) Epidural Technique: CLAUDIA saline Needle Type: Tuohy needle Injection Technique: continuous catheter Needle gauge: 17 Needle Length (cm): 10 cm Needle Insertion Depth (cm): 7 Catheter Gauge: 19 Catheter Type: end-hole Catheter at skin depth (cm): 17 Test Dose Result: negative and lidocaine 1.5% with epinephrine 1 to 200,000
--- NOTE | 2025-09-14 12:53 | PM.OBPNL ---
Subjective Date Seen: 09/14/25 Narrative: Notified by RN at 1215 that Fetus B was having recurrent late decelerations into the 90-100s bpm. Pitocin was turned off. Patient's low blood pressure was being treated and reposition was done. Upon arrival, Fetus A FHT was in the 130s bpm and fetus B FHT was in the 170s bpm. Patient consented to SVE and FSE placement to help with monitoring. SVE: /-1. Fetus B had two back to back late deceleration to the 120s bpm while she was on her back for SVE. Counseled patient on need for terbutaline if deceleration continues. However, resolved with right lateral decubitus position. Strip reviewed: Overall, Cat I x2 since last time I evaluated patient at 0750 until 1021. At that time Fetus B had 3 late decelerations into the 100s-90s. Fetus A had 1 subtle late into the 110s during that time period as well. RN reported resolution with just repositioning. Epidural was placed at 1059. Started at 1158, Fetus B started having recurrent late decelerations into the 90-100s which was treated with repositioning, cessation of Pitocin and phenylephrine as her BP was significantly lower than her baseline. During this time, Fetus A had Cat I tracing. Review clinical situation with patient. Patient understand that we would orient our decision to address the twin that is doing poorly. Discussed option for on going IOL to attempt vaginal delivery vs delivery. Patient strongly desires trying for vaginal delivery. Given that both twins are Cat I after our interventions, I recommend monitoring off Pitocin for 30 minutes. If appropriate we can restart pitocin at half dose (8u) prior to discontinuation. If there is deceleration where we are unable to start Pitocin or if either twins do not tolerate Pitocin one last time, I recommend proceeding with delivery. This will help avoid an emergency situation while giving reasonable attempt with IOL. Patient is amenable with this plan. Objective Vital Signs: Last Vital Signs Temp 98.4 F 09/14/25 12:26 Pulse 93 09/14/25 12:50 Resp 16 09/14/25 11:57 BP 110/65 09/14/25 12:50 Pulse Ox 99 09/14/25 12:50
[2025-09-14] MEDS: TERBUTALINE 1 MG/ML INJ 0.25 MG SUBCUT (13:59)
[2025-09-14] MEDS: AZITHROMYCIN 500 MG in 0.9 % SODIUM CHLORIDE 250 ml 250 ML 255 MG IVPB (14:15)
[2025-09-14 14:33] LABS: Hematocrit* 29.5 % (33.0-51.0); Hemoglobin* 9.8 gm/dL (12.0-16.0); Mean Corpuscular HGB Conc 33 gm/dL (32-36); Mean Corpuscular Hemoglobin 26 pg (26-34); Mean Corpuscular Volume 80 fL (80-100); Red Blood Count* 3.71 m/uL (4.00-5.20); White Blood Count* 14.55 K/uL (4.50-11.00)
--- NOTE | 2025-09-14 14:33 | PM.OBPNL ---
Subjective Date Seen: 09/14/25 Narrative: Pitocin restarted at 1314 (8u). Twin B had 3 minutes deceleration to the 90s. Pitocin stopped and 0.25 mg of terbutaline IM given. After terbutaline, FHT Cat I x 2. Discussed with Ewa that I recommend proceeding with delivery given that Twin B is not tolerating labor. Twin B is the one who also need to tolerate labor for a longer amount of time. If we continue attempting vaginal delivery, there is a higher risk of emergency and discordant modes of delivery even if she was able to deliver Twin A vaginally. While Ewa is disappointed, she would prefer a delivery at this point as well. The patient was consented for section and blood. She is having a delivery for the indication of: intolerance of labor by Twin B She understands that the four main categories of risk include pain, bleeding, infection, and damage to surrounding structures. Intraoperative pain will be manage with spinal anesthesia or epidural anesthesia. If that those are not effective or not appropriate for the clinical situation, general anesthesia will be administered. Immediately postop, TAP block will be performed. Throughout her recovery course, she will have on PO pain medications such as ibuprofen, Tylenol, and oxycodone. Regarding infection, she understands that we will be delivering appropriate antibiotics, however that the risk of infection following section still is approximately 5-7%. She understands that though the risk is very low that there is always a risk of damage to the bladder, uterus, ovaries, fallopian tubes, bowels, ureters, or even the fetus (<1%). She understands that most injuries can be addressed at the time of surgery, however, such an injury may require additional surgeries to fix. She understands that a section carries a risk of bleeding (1-5% risk of hemorrhage), and that while this bleeding can be addressed with multiple medical and surgical modalities (including hysterectomy), that there is the possibility of needing a blood transfusion (0.5-3%). She is at high risk of hemorrhage due to twin gestation as well. She reports she would accept a blood transfusion. She understands that a section does increase risks for future pregnancies and deliveries including, but not limited to, the risk of uterine rupture or placenta accreta. Given that her labor has progressed well despite being induced at 37 weeks, she might be a great TOLAC candidate depending on how surgery goes. Lastly, VTE after delivery rate is around 0.1-0.4%. Will decrease this risk with SCD use, early ambulation, and thromboprophylaxis medication if needed. We also reviewed postoperative care, recovery, and restrictions. All questions answered to patient's satisfaction and the best of my abilities. Consent form signed and will proceed with delivery via section. OR team notified. Hgb 9.8 gm/dL Plt 247 Objective Vital Signs: Last Vital Signs Temp 98.4 F 09/14/25 12:26 Pulse 136 H 09/14/25 14:18 Resp 16 09/14/25 11:57 BP 156/92 H 09/14/25 14:18 Pulse Ox 99 09/14/25 14:31
[2025-09-14 14:37] LABS: Slide Review Reflex No
[2025-09-14 14:53] LABS: Alanine Aminotransferase* 16 U/L (4-35); Aspartate Amino Transferase* 25 U/L (12-35); Blood Urea Nitrogen* 7 mg/dL (5-24); Creatinine* 0.7 mg/dL (0.5-1.5); Est. Creatinine Clearance* 123.93; Estimated Glomerular Filt Rate 123 ml/min
[2025-09-14] MEDS: TRANEXAMIC ACID 100 MG/ML INJ 1000 MG IV (15:30)
[2025-09-14] MEDS: miSOPROStoL 800 MCG/4 TABLET PR (16:08)
--- NOTE | 2025-09-14 16:46 | P.ANES_ITS ---
Anesthesia Charges Start Date/Time Anesthesia Start Date: 09/14/25 Anesthesia Start Time: 14:49 Stop Date/Time Anesthesia Stop Date: 09/14/25 Anesthesia Stop Time: 16:26 Summary Emergency: ROLL TENDER Coding CPT Codes CPT Codes: ANES/ANALG CS DELIVER ADD-ON - 23577 ([id number]) P2 - PATIENT W/MILD SYST DISEASE, QZ - ROLL TENDER SVC W/O RN CAMP BY Additional Codes: Summary - Emergency: ROLL TENDER ([id number])
--- NOTE | 2025-09-14 16:46 | W.ANESCHARGE ---
Anesthesia Charges Start Date/Time Anesthesia Start Date: 09/14/25 Anesthesia Start Time: 14:49 Stop Date/Time Anesthesia Stop Date: 09/14/25 Anesthesia Stop Time: 16:26 Summary Emergency: AUTOMOBILE BODY REPAIR CHIEF Coding CPT Codes CPT Codes: ANES/ANALG CS DELIVER ADD-ON - 89379 ([id number]) P2 - PATIENT W/MILD SYST DISEASE, QZ - AUTOMOBILE BODY REPAIR CHIEF SVC W/O DIRECTOR OF ARCHIVES BY Additional Codes: Summary - Emergency: AUTOMOBILE BODY REPAIR CHIEF ([id number])
--- NOTE | 2025-09-14 16:47 | W.PM.NB ---
Nerve Block Nerve Block Time Seen by Provider: 16:06 Date Seen: 09/14/25 Type of block requested by surgeon for post-operative analgesia: TAP Side: bilateral Time out performed: Yes Verification of patient name: Yes Verification of date of : Yes Site marking: site marked Name of person performing procedure: Gayle Bianchi Continuous monitoring Was continuous monitoring of O2 sat, B/P, environmental monitoring specialist, recorded every 15 minutes?: Yes Procedure Checklist: sterile prep, needles and gloves Ultrasound guided. Images saved: Yes Medications given in 5ml increments after negative aspiration: Marcaine %: 0.25 mL: 30 Needle gauge: 20 and Exparel mL: 10 Needle gauge: 20 Patient tolerated procedure well: Yes Block Charges Block Charge (with Pro Fee): TAP Bilateral Use of Ultrasound Machine for Block: Yes- US Guidance/pain block
--- NOTE | 2025-09-14 17:00 | P.OBPRC_ITS ---
Procedure Date of procedure: 09/14/25 Pre-op diagnosis: 1. Di-di twin gestation 2. intolerance of labor (Twin B) 3. Gestational hypertension Post-op diagnosis: same Procedure Done: Global [facility] [place] your pro fee for this procedure?: Yes Blood Loss Measurement Type: QBL (875 cc) Bakri Used: No IV fluids (mL): 1,000 Urine Output (mL): 150 Urine Output Comment: Clear Surgeon: Trisha Knox MD Roller Engraver: MD Wicho Anesthesia Type: Epidural Procedure Description: DELIVERY BY SECTION Date of Service: 09/14/2025 Delivery time: Twin A: 1520 Twin B: 1521 Summary: Admitted for IOL at 37.0 weeks due to GHTN. SVE in the OR: . BSUS showed cephalic presentation of A and transverse presentation of B (head to maternal right) Primary Lower uterine transverse section, Pfannenstiel, Closed with sutures, No complications Findings: Normal uterus, bilateral ovaries and tubes Twin A: 8/9, weight 5lb 15oz Twin B: 7/9, weight 5lb 12oz. Tight nuchal cord noted. Reduced at time of delivery. Procedures: Primary Lower uterine transverse section Specimens Removed: Placenta Report: Prophylactic antibiotic, 2 g of Ancef and 500 mg of Azithromycin were given before patient was taken to OR. After arrival to the operating room patient was placed in the supine position with left lateral tilt and epidural was redosed. She was prepped and draped in the usual sterile manner. Laparotomy A pfannenstiel incision was made through the anterior abdominal wall with #10 scalpel approximately 2 cm above the pubic symphysis. The incision was extended sharply with the #10 scalpel through the subcutaneous tissue to the level of fascia. The fascia was entered sharply with a #10 scalpel (Pfannenstiel) in the midline and extended in semi-elliptical fashion with Guaman scissor. The underlying muscles were dissected off the overlying fascia by grasping the superior aspect of fascia with two julianne clamps and blunt dissection was used along the midline. The fascia was further from rectus muscle with Guaman scissor and/or cautery. In similar fashion, the lower aspect of fascia was also grasped with two Julianne clamps and both blunt and sharp dissection was used to separate fascia from rectus muscle. The rectus muscles were in the midline bluntly with digits. The peritoneum was then entered sharply with Cheryl' s and Metzenbaum. The peritoneal incision was then extended superiorly and inferiorly under direct visualization with care being taken to avoid bladder and bowel. No adhesions were noted. The peritoneal incision was enlarged bluntly by lateral traction from the surgeon's and financial administrative assistant's hand. David retractor was inserted into the abdomen. Delivery A bladder flap was not created as bladder was low, away from intended incision site. A low transverse hysterotomy was made then with #10 scalpel and extended laterally and cephalad with fingers in a low transverse fashion with Manu Argueta t echnique with care being taken to avoid injury to the fetus. The amniotic cavity (membrane) of twin A was then entered with spontaneous rupture of membrane, and the amniotic fluid was noted to be clear, Twin A was delivered cephalic. The amniotic cavity (membrane) of twin A was then entered with spontaneous rupture of membrane, and the amniotic fluid was noted to be clear, Twin B was delivered breech. Footling breech was noted. Traction placed on left leg to delivery through hysterotomy until buttocks presented. buttocks delivered gradually through the hysterotomy fundal pressure was continue in both legs were extended using the Pinard maneuver. With gentle pressure the legs and body gradually delivered once the scapula could be seen that the baby was gently rotated and both arms were delivered using the loveset maneuver. Maintaining head flexion, head was delivered without difficulty using the Hfhzivci-[id number]-bizm maneuver. With delivery of the babies, no extension was noted. Placentas were delivered spontaneously with steady traction on cord and manual separation of placenta from uterine wall. Closure Uterine cavity was cleaned after placental delivery with lap sponge x 3. The hysterotomy was closed in two layers with stitches using 0 vicryl with continuous locking stitches and 0 monocryl in a continuous non locking manner. One figure of 8 placed in the middle of hysterotomy and at right uterine angle. Hemostasis was achieved as needed with electrocautery. The ovaries/tubes/uterine surface were evaluated. They were found to be normal. David retractor removed and hemostasis was confirmed again. Muscles and fascia evaluated for bleeding. Hemostasis achieved as needed with electrocautery. Fascia was closed with running stitches using 0 vicryl. Subcutaneous layer was irrigated. Hemostasis was checked for and found to be adequate. The subcutaneous layer was closed with running 2-0 Vicryl sutures. The skin was closed with 4-0 vicryl subcuticular sutures . The incision was cleaned, Exofin applied, and Mepilex dressing placed. The procedure considered terminate at this time. Uterotonics/hemostatic agents: 40u of pitocin, 1g of TXA, 800 mcg of misoprostol NH Disposition: The patient tolerated the procedure well. She was recovered in Obstetric PACU for close monitoring in stable condition, with a contracted uterus and normal transvaginal bleeding. The infants were sent to mother?s bedside/PACU. A segment of the cord was obtained for umbilical cord gases for Twin B. Cord blood gas was not available at time of operative note entered. Debrief with OR team performed and specimen reviewed at the conclusion of the procedure. Pathology: specimen obtained, sent to pathology Surgery Debrief Performed: Yes Surgery Debrief Comment: Placenta to pathology for: (1) Di-di twin gestation (2) Gestational hypertension (3) intolerance of labor (Twin B). Cord gases sent for Twin B Condition: stable Disposition: floor
[2025-09-14] MEDS: CARBOPROST TROMETHAMINE 250 MCG/ML INJ IM (17:35)
[2025-09-14] MEDS: LOPERAMIDE HCL 2 MG CAPSULE 4 MG PO (17:35)
[2025-09-14] MEDS: ACETAMINOPHEN 500 MG TABLET 1000 MG PO ×2 (17:36→23:30)
[2025-09-14] MEDS: LACTATED RINGERS 1000 ML 1,000 ML 75 ML IV (22:19)
[2025-09-15] VITALS (9 sets, daily range): BP systolic 100–127; BP diastolic 66–81; PULSE 81–93; RESP 16; TEMP 36.5–36.9; O2SAT 95–98
[2025-09-15] MEDS: ACETAMINOPHEN 500 MG TABLET 1000 MG PO ×2 (05:53→13:12)
[2025-09-15 06:27] LABS: Hemoglobin* 7.6 gm/dL (12.0-16.0)
[2025-09-15] MEDS: LANOLIN CREAM 1 APPLIC TOPICAL (09:12)
[2025-09-15] MEDS: DOCUSATE SODIUM 100 MG CAPSULE PO (09:12)
--- NOTE | 2025-09-15 12:23 | PM.OBPNVD1 ---
OB - PN:Subj Subjective Date Seen: 09/15/25 Narrative: Overnight patient had no complaints. Her babies are doing well. Her pain is well controlled on oral pain medications. She is tolerating a regular diet. She has passed flatus. She is ambulating without difficulty. Lochia is scant. She is urinating without hanks. Patient denies chest pain, SOB, n/v, headache, RUQ pain, vision changes, dizziness. Reviewed her Hgb. She currently asymptomatic. Ok with taking oral iron. OB - PN: Obj Exam Physical Exam: Vital signs: Temp Pulse Resp BP Pulse Ox O2 Del Method 98.1 F 91 16 100/71 97 Room Air 09/15/25 08:15 09/15/25 08:15 09/15/25 08:48 09/15/25 08:15 09/15/25 08:15 09/15/25 08:15 Narrative: Physical exam: General: No acute distress Psych: Alert and oriented x4, full affect HEENT: Normocephalic, atraumatic Heart: Regular rate and rhythm, no murmur rub or gallop Lungs: Clear to auscultation bilaterally Abdomen: Normoactive bowel sounds, soft, no tenderness, rebound, or guarding Incision(s): Minimally tender to palpation. Clean, dry, and intact. No erythema, induration, or abnormal discharge/breakdown Skin: No lesions or rashes Lower extremities: Trace bilateral lower extremity edema Pelvic exam: Small amount of bleeding on pad OB - PN: Obj Data Labs Labs: Laboratory Results - last 24 hr 09/14/25 09/15/25 14:27 06:10 WBC 14.55 H RBC 3.71 L Hgb 9.8 L 7.6 L* Hct 29.5 L MCV 80 MCH 26 MCHC 33 Plt Count 247 BUN 7 Creatinine 0.7 Estimated Creat Clear 123.93 Estimated GFR 123 AST 25 ALT 16 OB - PN: A/P Delivery Assessment and Plan (1) Gestational hypertension: Status: Acute Plan Comments: Postoperative/post delivery Review: - Admitted for: IOL due to GHTN. Patient had Di-di twins - Surgical procedure: Primary delivery - Skin incision: Pfannenstiel - Closure: sutures GHTN - Based on mild range in blood pressures and protein creatinine ratio of 0.26 - BPs had some severe ranging blood pressure that resolved with recheck prior to delivery. Blood pressure overnight 100 to 120s/60 to 80s - Symptoms: None - Magnesium: Currently not indicated - IV antihypertensives: Currently not indicated - p.o. antihypertensives: Nifedipine XL 30 mg q.day - Pre-eclampsia labs on 09/14/25: Hgb 9.8 Plt 247 Cr 0.7 ALT 16 AST 25 Acute blood loss anemia - Quantitative blood loss: 875 mL - Intraoperative Complications: none - Urine output: 1.50 cc/kg/hr - Preop/pre delivery Hgb: 9.8 gm/dL - Postop/post delivery Hgb: 7.6 gm/dL - Asymptomatic - PO iron ordered Postoperative care: - Diet: Advance as tolerated - Fluid: Encourage oral intake - Activity: Encourage ambulation and incentive spirometry - Pain: Acetaminophen, Ibuprofen, and oxycodone - DVT prophylaxis: SCDs and TEDs when not ambulating.
[2025-09-15] MEDS: FERROUS SULFATE 325 MG TABLET PO (13:13)
[2025-09-15] MEDS: IBUPROFEN 600 MG TABLET PO ×2 (17:32→23:41)
[2025-09-16 03:40] VITALS: BP 115/77; PULSE 79; RESP 16; O2SAT 96
[2025-09-16] MEDS: ACETAMINOPHEN 500 MG TABLET 1000 MG PO ×4 (03:41→22:53)
[2025-09-16] MEDS: IBUPROFEN 600 MG TABLET PO ×3 (06:20→20:10)
--- NOTE | 2025-09-16 07:10 | PM.OBPNVD1 ---
OB - PN:Subj Subjective Date Seen: 09/16/25 Narrative: Ewa is a 25 y.o. G 1 P 1 who was admitted to [facility] for primary c/s for twins. ?She had a section that was complicated by PPH of just greater than 1,000 ml. Her hemoglobin was 7.6 yesterday but she is asymptomatic. Oral iron was started. The patient feels well. ?The pain is well controlled with current medications. ?She has no new complaints. ?She is breast feeding and reports things are going well. the patient has done well.? Vitals have been stable. She was started on oral nifedipine but this was held yesterday. Will monitor BP's today to see if needed to continue.? She has remained afebrile.? Has a good appetite, is tolerating a general diet. ?She is voiding without difficulty.? She is passing gas and has not had a bowel movement.? She is ambulating and denies any dizziness.? Has small amount of rubra lochia. Problems: Anemia, GHTN OB - PN: Obj Exam Physical Exam: Vital signs: Temp Pulse Resp BP Pulse Ox O2 Del Method 97.8 F 79 16 115/77 96 Room Air 09/15/25 20:08 09/16/25 03:40 09/16/25 03:40 09/16/25 03:40 09/16/25 03:40 09/16/25 03:40 Narrative: GENERAL APPEARANCE:? normal affect, alert, no distress MOOD:? appropriate CHEST:? clear to auscultation HEART:? regular rate and rhythm ABDOMEN:? soft, non-tender the uterine fundus is At Umbilicus, Midline and is appropriate for the stage of recovery. EXTREMITIES:? normal and trace edema INCISION: Healing well, no surrounding erythema, abnormal induration or discharge OB - PN: A/P Delivery Assessment and Plan (1) care and examination immediately after delivery: Status: Acute (2) Gestational hypertension: Status: Acute (3) Lactating mother: Status: Acute Plan day: 1 Plan: routine care Comments: , may see if needed? Hgb 7.6. Iron supplement ordered orally every other day? GHTN diagnosed by elevated BP greater than 4 hours apart. BP medication ordered for am. Was held today and yesterday. May need if BP continues to trend upwards. Anticipate discharge home tomorrow. Patient is stable to go home today if desired however, boy needs car seat trial tonight so she has elected to stay again tonight.
[2025-09-16 08:10] VITALS: BP 121/77; PULSE 71; RESP 16; TEMP 36.8; O2SAT 96
[2025-09-16 13:00] VITALS: BP 131/79; PULSE 94; RESP 16; TEMP 36.5; O2SAT 96
[2025-09-16 17:15] VITALS: BP 130/81; PULSE 85; RESP 16; TEMP 36.6; O2SAT 97
[2025-09-16 21:50] VITALS: BP 124/79; PULSE 80; RESP 16; TEMP 36.4; O2SAT 97
[2025-09-17 01:03] VITALS: BP 129/83; PULSE 73; RESP 16; O2SAT 98
[2025-09-17] MEDS: IBUPROFEN 600 MG TABLET PO ×2 (04:33→10:50)
[2025-09-17 04:53] VITALS: BP 131/84; PULSE 80; RESP 16; TEMP 36.4; O2SAT 97
--- NOTE | 2025-09-17 07:47 | P.DS_ITS ---
DS: Providers Provider Time Seen by Provider: 07:47 Date Seen: 09/17/25 Date of admission: 09/13/25 15:24 Primary care physician: Stacey Orellana CNM Admitting Clinician: Stacia Szymnaski MD Attending Physician on discharge: Stacia Szymanski MD Date of Discharge: 09/17/25 DS: Diagnosis Discharge Diagnosis (1) care and examination immediately after delivery: Status: Acute (2) Lactating mother: Status: Acute (3) Gestational hypertension: Status: Acute (4) Anemia, : Status: Acute Exam Narrative: Exam Narrative: GENERAL APPEARANCE:? normal?affect, alert, no distress? MOOD:? appropriate? CHEST:? clear?to auscultation and percussion? HEART:? regular?rate and rhythm? BREASTS: soft, nontender, no erythema, nipples intact? ABDOMEN:? soft, non-tender?the uterine?fundus is?U/2?and is?appropriate for?the stage of recovery.?Incision is well approximated without drainage, erythema, and bruising and only slight edema.? PERINEUM:? mild?edema of the perineum.? EXTREMITIES:? normal?and no edema? Const: Vital Signs, click to edit/add: Vital Signs - 24 hr 09/16/25 08:10 09/16/25 13:00 09/16/25 17:15 Temperature 98.2 F 97.7 F 97.9 F Pulse Rate [Pulse Oximeter] 71 94 85 Respiratory Rate 16 16 16 Blood Pressure [Le ft Arm] 121/77 131/79 130/81 Pulse Oximetry 96 96 97 Oxygen Delivery Me thod Room Air Room Air Room Air 09/16/25 21:50 09/17/25 01:03 09/17/25 04:53 Temperature 97.6 F 97.6 F Pulse Rate [Pulse Oximeter] 80 73 80 Respiratory Rate 16 16 16 Blood Pressure [Le ft Arm] 124/79 129/83 131/84 Pulse Oximetry 97 98 97 Oxygen Delivery Me thod Room Air Room Air Room Air Documenting provider has reviewed patient's vital signs: yes OB - DS: Summary Hospital Course Hospital Course: Ewa is a 25 year old G 1 P 2 at 37.0 weeks gestation that was admitted to the Center on 09/13/25 for IOL for gestational hypertension and twin gestation. She had an uncomplicated vaginal delivery after laboring for intolerance. She delivered viable male and female infants. She is breast feeding and supplementing with donor and expressed milk due to their weight loss and the males decreasing O2 sats during feedings. She was tearful talking about her sons difficulties. the patient has done well. Her?pain is well controlled with current medications and she has not needed narcotic medications.??She has no new complaints.??Urinary output is?adequate?and she is voiding without difficulty.??Has?a good appetite, is tolerating a general diet, is passing flatus, and has?had a bowel movement without difficulty.??Has?scant?amount?of rubra lochia.??She?is?ambulating?well. She is taking iron supplement and denies feeling symptomatic of her anemia. Will continue EOD after discharge. She is uncertain what she would like to do for contraception and options while were reviewed. Her blood pressures yesterday and today have been slightly trending up. After a discussion it was decided to start the Nifedipine 30mg daily she previously had one dose of. Will plan for one dose today and to continue daily after discharge. She has a blood pressure cuff at home and will continue to check her blood pressure BID at home. Reviewed symptoms which she denies at this time. Peripartum Data Infant delivery method: Primary C/S; Labored Procedures: Procedures Operation Date: 09/14/25 14:30 Actual Procedure Side Surgeon p Primary Delivery Trisha Knox MD complications: none Gender: Male [place] Infant A Gender: Male Discharge Plan: Home [place] B Infant Gender: Female Discharge Plan: Home Status at Discharge Functional status at discharge: independent ambulation Overall status at discharge: patient is progressing back to baseline Time Spent with Patient Time attestation: Total time spent providing and/or coordinating discharge services: Discharge Plan Discharge Disposition: Home, Self-Care Date of Admission: 09/13/25 15:24 Attending Provider on Discharge: Stacey Orellana Primary Care Provider: Stacey Orellana Condition: Stable Anticipated Discharge Date/Time: 09/17/25 16:00 Discharge Medications: New docusate sodium 100 mg Capsule 100 mg PO DAILY Qty: 180 0RF Rx Instructions: Take 1-2 tablets daily as needed for constipation. ferrous sulfate 325 mg (65 mg iron) Tablet 325 mg PO Q48H Qty: 90 0RF ibuprofen 600 mg Tablet 600 mg PO Q6H PRN (Reason: Pain) Qty: 90 0RF nifedipine 30 mg Tablet Extended Release 30 mg PO DAILY Qty: 60 0RF Continued omega 1-kbb-cqt-fish oil [Fish Oil] 60-90-500 mg capsule 2 cap PO QDAY Discontinued folic acid 400 mcg tablet 0.4 mg PO QDAY aspirin [Adult Low Dose Aspirin] 81 mg tablet,delayed release (DR/EC) 81 mg PO QDAY Discharge Orders: Discharge Order (Routine); Ordered 09/17/25 Ordered By: Stacey Orellana Patient Education: OB /Breast Feeding Additional Instructions: Discharge instructions were reviewed with the patient including signs and symptoms of infection and home going medications Lifting Restrictions: 20 pounds for 6 weeks No not submerge incision under water X 2 weeks? Nothing vaginally for 6 weeks: no tampons or intercourse Do not drive while taking narcotic pain medication(s) Off Work or School for 8 weeks [facility] for a BP check?09/20/25 Call with BP greater than or equal to 160/110 2-week visit: incision check, discuss feeding concerns, review control options and screen for anxiety/depression. 6-week visit for an annual exam. consultation services are available to all mothers and babies for the first year after delivery.? To make an appointment, please call [phone]. Activity Level: Light activity Discharge Diet: Regular Follow Up Appointments: [facility] [Provider Group] Stacey Orellana CNM [Primary Care Provider, Certified Nurse Palm Gatherer] Forms: [employer] Info Instructions
[2025-09-17] MEDS: ACETAMINOPHEN 500 MG TABLET 1000 MG PO ×2 (07:56→13:57)
[2025-09-17] MEDS: DOCUSATE SODIUM 100 MG CAPSULE PO (08:02)
[2025-09-17 08:15] VITALS: BP 137/79; PULSE 85; RESP 18; TEMP 36.6; O2SAT 96
[2025-09-17] MEDS: FERROUS SULFATE 325 MG TABLET PO (09:39)
== END 2025-09-17 14:05 | disposition home or self-care (01) | DRG 540 ==
PROVIDERS: Obstetrics & Gynecology; Admitting Provider Obstetrics & Gynecology; PCP Advanced Practice Midwife; Visit Provider Obstetrics & Gynecology
PROC: 10D00Z1 Extraction of Products of Conception, Low, Open Approach (ICD-10-PCS; CPT 59514; principal; 2025-09-14 14:30)
DX: O13.4 Gestational [pregnancy-induced] hypertension without significant proteinuria, complicating childbirth (principal); O76 Abnormality in fetal heart rate and rhythm complicating labor and delivery; O30.043 Twin pregnancy, dichorionic/diamniotic, third trimester; O32.1XX2 Maternal care for breech presentation, fetus 2; G89.18 Other acute postprocedural pain; O90.81 Anemia of the puerperium; D62 Acute posthemorrhagic anemia; Z3A.36 36 weeks gestation of pregnancy; Z37.2 Twins, both liveborn
CPT/HCPCS: 01967; 01968; 36415; 59200; 64488; 76815; 76942; 82565; 82570; 84156; 84450; 84460; 84520; 85018; 85027; 86780; 86850; 86900; 86901; 86922; 99140; A4314; A9270; C1726; J0456; J0665; J0666; J0690; J1100; J1200; J1885; J2270; J2274; J2405; J2590; J2795; J3010; J3105; J7050; J7120